=== PATIENT | male | born 1950 | race Two or more races ===

== ENCOUNTER 2017-08-21 15:24 | Inpatient (IN) | payer BC ==
[~2017-08-21] VITALS: Ht 172.7 cm; Wt 58.5 kg
--- NOTE | 2017-08-21 15:27 | NUR ---
PT TO ER BED 14 C/O R SIDED HEAD PAIN AND R ANKLE PAIN S/P SYNCOPE WHILE IN THE BATHROOM. PT IS AWAKE AAO, LATVIAN SPEAKING. PLACED ON MONITOR. VSS. AWAITING MD OCOHA.
--- NOTE | 2017-08-21 16:02 | NUR ---
DR POLANCO AT BEDSIDE FOR EVAL.
--- NOTE | 2017-08-21 16:21 | NUR ---
Note [email or web address] in EDM - 08/21/17 at 1810 by SERGEI PT TO ER BED 14 C/O R SIDED HEAD PAIN AND R ANKLE PAIN S/P SYNCOPE WHILE IN THE BATHROOM. PT IS AWAKE AAO, KOREAN SPEAKING. PLACED ON MONITOR. VSS. AWAITING MD OCHOA.
[2017-08-21 16:24] LABS: BASOPHILS # (AUTO) 0.1 /CMM (0.0-0.2); BASOPHILS % (AUTO) 0.5 % (0.0-2.0); EOSINOPHILS % (AUTO) 1.7 % (0.0-6.0); HEMATOCRIT 40 % (39-51); HEMOGLOBIN 13.5 g/dL (13.5-17.5); LYMPHOCYTES # (AUTO) 0.9 /CMM (0.8-4.8); LYMPHOCYTES % (AUTO) 7.8 % (20.0-44.0); MEAN CORPUSCULAR HEMOGLOBIN 30 PG (26.0-33.0); MEAN CORPUSCULAR HGB CONC 34 g/dl (31.0-36.0); MEAN CORPUSCULAR VOLUME 89 fL (80-96); MONOCYTES # (AUTO) 0.9 /CMM (0.1-1.30); MONOCYTES % (AUTO) 7.8 % (2.0-12.0); NEUTROPHILS # (AUTO) 8.9 /CMM (1.8-8.9); NEUTROPHILS % (AUTO) 82.2 % (43.0-81.0); PLATELET COUNT (AUTO) 273 /CMM (150-450); RDW COEFFICIENT OF VARIATION 12.8 (11.5-15.0); RED BLOOD CELL COUNT(AUTO) 4.55 MIL/uL (4.5-6.0)
[2017-08-21 16:34] LABS: CALCIUM, SERUM 8.7 mg/dL (8.5-10.1); CREATININE 0.9 mg/dL (0.6-1.3); POTASSIUM 4.3 mmol/L (3.5-5.1)
[2017-08-21 16:38] LABS: INR 0.95 (0.85-1.15)
[2017-08-21 16:42] LABS: TROPONIN I 0.164 ng/mL (0.00-0.056)
--- NOTE | 2017-08-21 16:50 | NUR ---
PT TO RADIOLOGY FOR HEAD AND C SPINE CT SCAN VIA WHEELCHAIR.
[2017-08-21] MEDS ORDERED: VALS80TA2 PO (18:11)
[2017-08-21] MEDS ORDERED: TAMS0.4C34 PO (18:11)
[2017-08-21] MEDS ORDERED: ATEN25TA PO (18:11)
[2017-08-21] MEDS ORDERED: PRED5TAB PO (18:11)
[2017-08-21] MEDS ORDERED: ASPI-1169 PO (18:11)
[2017-08-21] MEDS ORDERED: AMLO5TAB2 PO (18:11)
[2017-08-21] MEDS ORDERED: METO-356 PO (18:11)
[2017-08-21] MEDS ORDERED: OMEP20TA5 PO (18:11)
[2017-08-21] MEDS ORDERED: IOHEXOL-350 100 ML VIAL IV ONE (18:27)
[2017-08-21] MEDS ORDERED: CT SWABBABLE VALVE TRANS SET 1 EA INFUS.SET MC ONE (18:27)
[2017-08-21] MEDS ORDERED: IV NS 0.9% 250 ML IV ONE (18:27)
[2017-08-21] MEDS ORDERED: ASPIRIN 81 MG TAB.CHEW PO ONE (18:30)
[2017-08-21] MEDS ORDERED: ASPIRIN 325 MG TABLET ONE (19:02)
[2017-08-21] MEDS ORDERED: IV NS 0.9% 1,000 ML IV PRN (19:54)
[2017-08-21] MEDS ORDERED: MORPHINE SULFATE INJ 2 MG/ML DISP.SYRIN IV PRN (20:00)
[2017-08-21] MEDS ORDERED: NITROGLYCERIN 0.4 MG/TAB BOTTLE SL PRN (20:00)
[2017-08-21] MEDS ORDERED: MAG HYDROX/AL HYDROX/SIMETH 30 ML UDC PO PRN (20:00)
[2017-08-21] MEDS ORDERED: ACETAMINOPHEN 325 MG TABLET PO PRN (20:00)
[2017-08-21] MEDS ORDERED: HYDROCODONE/APAP 5/325MG 1 EACH TABLET PO PRN (20:00)
[2017-08-21] MEDS ORDERED: MAGNESIUM HYDROXIDE 30 ML UDC PO PRN (20:00)
[2017-08-21] MEDS ORDERED: Z GUARD REMEDY 2 OZ OINT TP PRN (20:00)
[2017-08-21] MEDS ORDERED: ONDANSETRON HCL/PF 4 MG/2 ML VIAL IVP PRN (20:00)
--- NOTE | 2017-08-21 20:25 | NUR ---
REPORT TO SUKI DUNN. PT AWAITING TRANSFER TO FLOOR.
[2017-08-21] MEDS ORDERED: ENOXAPARIN SODIUM 80 MG/0.8 ML DISP.SYRIN SQ ONE (20:30)
[2017-08-21 20:45] VITALS: BP_SYST 113; BP_SYST 122; BP_SYST 143; BP_DIAS 80; BP_DIAS 85; BP_DIAS 90
--- NOTE | 2017-08-21 20:45 | NUR ---
TELE-1/ASBESTOS TEXTILE SUPERVISOR RECEIVED PT ACCOMPANIED BY ER STAFF AND SEVERAL FAMILY MEMBERS. PT AMBULATED TO BED 119-1 WITHOUT ASSISTANCE. VSS AFEBRILE. ADMISSION ASSESSMENT COMPLETE. PT ORIENTED TO ROOM AND CALL LIGHT. FAMILY UPDATED ON PLAN OF CARE. BED IN LOWEST LOCKED POSITION. CALL LIGHT WITHIN REACH. BED ALARM ON. WILL CONTINUE TO MONITOR.
--- NOTE | 2017-08-21 20:53 | NUR ---
TRANSFERED TO FLOOR. STABLE CONDITION.
[2017-08-21] MEDS ORDERED: ENOXAPARIN SODIUM 60 MG/0.6 ML DISP.SYRIN SQ ONE (21:30)
[2017-08-21] MEDS: TAMSULOSIN 0.4 MG CAP.SR.24H PO SCH (21:51)
[2017-08-22 00:05] VITALS: BP 120/76
[2017-08-22 04:01] VITALS: BP 113/80
[2017-08-22 06:17] LABS: BASOPHILS # (AUTO) 0.1 /CMM (0.0-0.2); BASOPHILS % (AUTO) 0.7 % (0.0-2.0); EOSINOPHILS % (AUTO) 3.4 % (0.0-6.0); HEMATOCRIT 40 % (39-51); HEMOGLOBIN 13.3 g/dL (13.5-17.5); LYMPHOCYTES # (AUTO) 1.4 /CMM (0.8-4.8); LYMPHOCYTES % (AUTO) 15.8 % (20.0-44.0); MEAN CORPUSCULAR HEMOGLOBIN 29 PG (26.0-33.0); MEAN CORPUSCULAR HGB CONC 33 g/dl (31.0-36.0); MEAN CORPUSCULAR VOLUME 88 fL (80-96); MONOCYTES # (AUTO) 0.7 /CMM (0.1-1.30); MONOCYTES % (AUTO) 7.9 % (2.0-12.0); NEUTROPHILS # (AUTO) 6.3 /CMM (1.8-8.9); NEUTROPHILS % (AUTO) 72.2 % (43.0-81.0); PLATELET COUNT (AUTO) 258 /CMM (150-450); RDW COEFFICIENT OF VARIATION 13.1 (11.5-15.0); RED BLOOD CELL COUNT(AUTO) 4.55 MIL/uL (4.5-6.0); WHITE BLOOD COUNT (AUTO) 8.8 K/uL (4.3-11.0)
--- NOTE | 2017-08-22 07:30 | NUR ---
RESTORATIVE AIDE INITIAL NOTES: RECEIVED PT IN BED, AWAKE. A&O X3. NEPALI SPEAKING, OTHER STAFF MEMBER USED FOR TRANSLATION. ON TELE MONITOR ST, HR 105. IV TO L HAND IN PLACE, CONNECTED TO FLUIDS ORDERED. PT TOLERATING WELL. DENIES ANY PAIN OR DISCOMFORT AT THIS TIME. BED IN LOW LOCKED POSITION, CALL LIGHT WITHIN REACH. PLAN OF CARE DISCUSSED WITH PT. WILL CONTINUE TO MONITOR.
[2017-08-22 07:49] LABS: THYROID STIMULATING HORMONE 0.904 uIU/mL (0.358-3.74)
[2017-08-22 08:00] VITALS: BP 140/98
[2017-08-22] MEDS: ASPIRIN 81 MG TAB.CHEW PO SCH (08:23)
[2017-08-22] MEDS: predniSONE 5 MG TABLET PO SCH (08:23)
[2017-08-22 08:27] LABS: CALCIUM, SERUM 8.3 mg/dL (8.5-10.1); CREATININE 0.8 mg/dL (0.6-1.3); PHOSPHORUS 3.4 mg/dL (2.5-4.9)
[2017-08-22] MEDS ORDERED: ASPIRIN EC 81 MG TABLET.DR PO SCH (09:00)
[2017-08-22 12:00] VITALS: BP 120/78
--- NOTE | 2017-08-22 14:00 | NUR ---
DR DEWITT AT BEDSIDE TO ASSESS PT.
[2017-08-22 16:00] VITALS: BP_SYST 124; BP_SYST 126; BP_DIAS 90; BP_DIAS 94; BP_DIAS 95
[2017-08-22] MEDS: METOPROLOL TARTRATE 50 MG TABLET PO SCH ×2 (17:53→23:40)
--- NOTE | 2017-08-22 18:45 | NUR ---
CREDIT COUNSELOR END NOTES: PT REMAINS IN BED RESTING AT THIS TIME, EASY TO AROUSE. FAMILY MEMBER AT BEDSIDE. IV TO L WRIST IN PLACE AND CONNECTED TO FLUIDS ORDERED. PT DENIES ANY PAIN OR DISCOMFORT AT THIS TIME. BED IN LOW LOCKED POSITION, CALL LIGHT WITHIN REACH. BED ALARM ON FOR SAFETY. WILL ENDORSE TO PM SHIFT FOR CONTINUITY OF CARE.
[2017-08-22 20:00] VITALS: BP 114/78
--- NOTE | 2017-08-22 20:00 | NUR ---
SOFIA RN NOTES RECEIVED PT IN BED, AWAKE. A&O X4. NIUEAN SPEAKING, SON AT BEDSIDE. ON TELE MONITOR ST 78. PT IS ON NC 2L WITH SPO2 OF 98%. IV TO L HAND IN PLACE, CONNECTED TO FLUIDS ORDERED. PT TOLERATING WELL. DENIES ANY PAIN OR DISCOMFORT AT THIS TIME. BED IN LOW LOCKED POSITION, CALL LIGHT WITHIN REACH. PLAN OF CARE DISCUSSED WITH PT. WILL CONTINUE TO MONITOR.
[2017-08-22] MEDS: IV NS 0.9% 1,000 ML IV PRN (21:47)
[2017-08-22] MEDS: TAMSULOSIN 0.4 MG CAP.SR.24H PO SCH (22:01)
[2017-08-22] MEDS: ENOXAPARIN SODIUM 40 MG/0.4 ML DISP.SYRIN SQ SCH (22:07)
[2017-08-23] VITALS (9 sets, daily range): BP systolic 114–160; BP diastolic 74–96
[2017-08-23] MEDS: ZOLPIDEM TARTRATE 5 MG TABLET PO PRN ×3 (01:44→23:09)
--- NOTE | 2017-08-23 01:56 | NUR ---
SOFIA RN NOTES PATIENT DROOPED THE FIRST TABLET OF 5MG ZOLPIDEM PO AND I GAVE HIM NEW ONE SAME DOSE OF THE SAME MEDICATION.
[2017-08-23] MEDS: METOPROLOL TARTRATE 50 MG TABLET PO SCH ×4 (05:39→23:09)
--- NOTE | 2017-08-23 06:45 | NUR ---
SOFIA RN NOTES PATIENT IN BED RESTING COMFORTABLY, A/OX4, NO SOB, NO COMPLAIN OF PAIN DURING MY SHIFT. PT IS ON 2L O2 VIA NC WITH SPO2 OF 98%. SR ON CYCLE COUNTER, SYSTOLIC B/P WAS ON 140'S, 150'S , MEDS ARE ADMINISTERED IN TIMELY MANNERS. RIGHT FOREARM 20G IV LINE IS PATIENT, INTACT WITH 0.9% [id number].PT WAS NPO SINCE MIDNIGHT FOR CT ANGIO HEART 09:00, 08/23/17. ALL NEEDS ARE CARED OUT WITH TIMELY MANNERS. PT CARE WILL BE ENDORSE TO AM NURSE FOR RETIREMENT VILLAGE MANAGER.
[2017-08-23 07:12] LABS: BASOPHILS # (AUTO) 0.1 /CMM (0.0-0.2); BASOPHILS % (AUTO) 0.5 % (0.0-2.0); EOSINOPHILS % (AUTO) 3.2 % (0.0-6.0); HEMATOCRIT 42 % (39-51); HEMOGLOBIN 13.6 g/dL (13.5-17.5); LYMPHOCYTES # (AUTO) 2.1 /CMM (0.8-4.8); LYMPHOCYTES % (AUTO) 17.8 % (20.0-44.0); MEAN CORPUSCULAR HEMOGLOBIN 30 PG (26.0-33.0); MEAN CORPUSCULAR HGB CONC 33 g/dl (31.0-36.0); MEAN CORPUSCULAR VOLUME 92 fL (80-96); MONOCYTES # (AUTO) 0.9 /CMM (0.1-1.30); MONOCYTES % (AUTO) 7.3 % (2.0-12.0); NEUTROPHILS # (AUTO) 8.4 /CMM (1.8-8.9); NEUTROPHILS % (AUTO) 71.2 % (43.0-81.0); PLATELET COUNT (AUTO) 297 /CMM (150-450); RDW COEFFICIENT OF VARIATION 13.6 (11.5-15.0); RED BLOOD CELL COUNT(AUTO) 4.56 MIL/uL (4.5-6.0); WHITE BLOOD COUNT (AUTO) 11.8 K/uL (4.3-11.0)
[2017-08-23 07:23] LABS: CALCIUM, SERUM 8.3 mg/dL (8.5-10.1); CREATININE 0.8 mg/dL (0.6-1.3)
[2017-08-23] MEDS: IV NS 0.9% 1,000 ML IV PRN (07:34)
[2017-08-23] MEDS: ASPIRIN 81 MG TAB.CHEW PO SCH (08:55)
[2017-08-23] MEDS: predniSONE 5 MG TABLET PO SCH (08:55)
--- NOTE | 2017-08-23 11:11 | NUR ---
SUPERVISOR INSPECTION AND TESTING NOTES PT REFUSED CT ANGIO HEART WITH 3D IMAGE, DR LEE AT BEDSIDE, EXPLAINED PROCEDURE AND REASON FOR THE NEED OF IT BUT PT STILL REFUSED, EXPLAINED RISKS FOR NOT HAVING IT, CALLED DAUGHTER ADEOLA AND ADVISED HER PT HAS REFUSED CT ANGIO. WILL LET MD DEWITT KNOW ABOUT THIS AND PT INSISTS WANTS TO GO HOME.
--- NOTE | 2017-08-23 11:21 | NUR ---
HYDROLOGY TEACHER NOTES PT IS BACK ON CARDIAC DIET, NO NEED FOR NPO AT THIS TIME SINCE PT REFUSES CT ANGIO
--- NOTE | 2017-08-23 17:51 | NUR ---
END WORKER NOTES PT SIGNED CONSENT FOR CT ANGIO HEART WITH 3D IMAGE DR DEWITT AT BEDSIDE AND SPOKE WITH PT REGARDING RISKS OF NOT HAVING DONE, PTS FAMILY AT BEDSIDE AND PT DECIDED TO AGREE, PT NEEDS 18G IV RT AC PER XRAY REQUEST, PT KEPT NPO AFTER MIDNIGHT PER MD ORDERS, CALL [phone] TOM[address]ROW FOR CT SCAN
--- NOTE | 2017-08-23 18:33 | NUR ---
CLINICAL DIETICIAN ENDING NOTES PT RESTING IN BED, ASLEEP AT THIS TIME, PT NEEDS NEW IV SITE RT AC [address] ANGIO HEART TOMORROW, CONSENT SIGNED AND PLACED IN CHART, ALL NEEDS MET, NO ACUTE CHANGES NOTED, NO SOB, WILL MONITOR, DR LEE AWARE OF PT NOW OK WITH CT ANGIO HEART.
--- NOTE | 2017-08-23 19:30 | NUR ---
RN OPENING NOTES: RECEIVED PATIENT ON BED AWAKE ALERT AND ORIENTED, UPPER SORBIAN SPEAKING. PATIENT ON O2 VIA NC AT 2LPM, PATIENT NOTICED TO BE REMOVING O2 CANNULA ONCE IN A WHILE. RE EDUCATED RE O2 THERAPY. SR ON THE MONITOR. NO COMPLAINTS OF PAIN. IV ON RFA G20, PATENT AND INTACT, IVF INFUSING ORDERED. NO COMPLAINTS OF PAIN AT THIS TIME. FALL PRECAUTIONS AND SAFETY MEASURES ENSURED AT ALL TIMES. CALL LIGHT IN REACH. CONTINUOUSLY MONITORED.
[2017-08-23] MEDS: ENOXAPARIN SODIUM 40 MG/0.4 ML DISP.SYRIN SQ SCH (21:34)
[2017-08-23] MEDS: TAMSULOSIN 0.4 MG CAP.SR.24H PO SCH (21:35)
[2017-08-24] VITALS (14 sets, daily range): BP systolic 105–150; BP diastolic 66–99
[2017-08-24] MEDS: IV NS 0.9% 1,000 ML IV PRN (01:17)
[2017-08-24] MEDS: METOPROLOL TARTRATE 50 MG TABLET PO SCH ×2 (05:48→08:42)
--- NOTE | 2017-08-24 06:49 | NUR ---
RN CLOSING NOTES: PATIENT REMAINED NOT IN APPARENT DISTRESS AT THIS TIME. REMAINS ON BED. OCCASIONALLY ABLE TO AMBULATE TO BATHROOM FEW TIMES THE SHIFT. NPO SINCE MIDNIGHT. SAFETY MEASURES ENSURED AT ALL TIMES. CONTINUOUSLY MONITORED. AM LABS DRAWN, PENDING RESULT. TO ENDORSE TO PM SHIFT RN.
[2017-08-24 06:58] LABS: BASOPHILS % (AUTO) 0.5 % (0.0-2.0); EOSINOPHILS % (AUTO) 6.6 % (0.0-6.0); HEMATOCRIT 38 % (39-51); HEMOGLOBIN 12.3 g/dL (13.5-17.5); LYMPHOCYTES # (AUTO) 1.7 /CMM (0.8-4.8); LYMPHOCYTES % (AUTO) 19.4 % (20.0-44.0); MEAN CORPUSCULAR HEMOGLOBIN 30 PG (26.0-33.0); MEAN CORPUSCULAR HGB CONC 33 g/dl (31.0-36.0); MEAN CORPUSCULAR VOLUME 92 fL (80-96); MONOCYTES # (AUTO) 0.8 /CMM (0.1-1.30); MONOCYTES % (AUTO) 9.5 % (2.0-12.0); NEUTROPHILS # (AUTO) 5.7 /CMM (1.8-8.9); PLATELET COUNT (AUTO) 261 /CMM (150-450); RDW COEFFICIENT OF VARIATION 13.4 (11.5-15.0); RED BLOOD CELL COUNT(AUTO) 4.09 MIL/uL (4.5-6.0)
[2017-08-24 07:23] LABS: CALCIUM, SERUM 8.1 mg/dL (8.5-10.1); CREATININE 0.7 mg/dL (0.6-1.3); POTASSIUM 3.7 mmol/L (3.5-5.1)
--- NOTE | 2017-08-24 08:00 | NUR ---
WAITER/WAITRESS BUFFET AM NOTES: RECEIVED PATIENT ON BED COMFORTABLY SLEEPING BUT AROUSABLE. ALERT AND ORIENTED, PORTUGUESE SPEAKING. PATIENT ON O2 VIA NC AT 2LPM, PATIENT NOTICED TO BE REMOVING O2 CANNULA ONCE IN A WHILE. RE EDUCATED RE O2 THERAPY. SR ON THE MONITOR. NO COMPLAINTS OF PAIN. IV ON RFA G20, PATENT AND INTACT, IVF INFUSING ORDERED TO RFA AND ANOTHER HEPLOCK ON LFA G 18 FOR ANGIO USE. NO COMPLAINTS OF PAIN OR DISTRESS.FALL PRECAUTIONS AND SAFETY MEASURES ENSURED AT ALL TIMES. CALL LIGHT WITHIN REACH.
--- NOTE | 2017-08-24 09:20 | NUR ---
PT WENT FOR CT ANGIO OF HEART 3D IMAGE PROCEDURE WITH STABLE V/S.
[2017-08-24] MEDS ORDERED: VERAPAMIL HCL IV 5 MG/2 ML VIAL ONE (09:37)
--- NOTE | 2017-08-24 09:40 | NUR ---
ICU/RN: Pt brought to radiology in stable condition. Administered Verapamil 1mg IVP per MD order; HR >60. L FA #18 patent flushed. Pt verbalized understanding of procedure. 1003 - NTG 0.4 mg tab SL x1 tab administered. Educated on med, nodded head in agreement. 1010 - Test completed, pt in NSR, denies pain or distress. SBP >90mmHg.
[2017-08-24] MEDS ORDERED: IOHEXOL-350 100 ML VIAL IV ONE (09:42)
[2017-08-24] MEDS ORDERED: CT SWABBABLE VALVE TRANS SET 1 EA INFUS.SET MC ONE (09:43)
--- NOTE | 2017-08-24 10:35 | NUR ---
ICU/RN: Pt transferred back to floor in stable condition, fall precautions in place. Educated. Bedside report given to Lynnette for MICHAELA.
[2017-08-24] MEDS: predniSONE 5 MG TABLET PO SCH (10:39)
[2017-08-24] MEDS: ASPIRIN 81 MG TAB.CHEW PO SCH (10:39)
--- NOTE | 2017-08-24 10:40 | NUR ---
PT CAME BACK FROM CT ANGIO PROCEDURE WITH STABLE V/S.PT DENIES ANY PAIN OR DISTRESS. BP 108/70 HR 58-61 O2 SAT 94% ON ROOM AIR.PT RESTING IN BED COMFORTABLY.RESUMED HIS DIET.CALL LIGHT PLACED WITHIN REACH.
--- NOTE | 2017-08-24 14:40 | NUR ---
DISCHARGED PT HOME WITH STABLE V/S ACCOMPANIED BY HIS FAMILY MEMBERS VIA PRIVATE CAR.INSTRUCTED TO F/U WITH DR LARKIN FOR CARDIO F/U.REMOVED ALL IV H/L TO BOTH RFA AND LFA WITH NO BLEEDING NOTED.
== END 2017-08-24 14:41 | disposition home or self-care (01) | DRG 190 ==
LOC: ER 15:26 → TELE1 20:50 → MEDSG1 08-24 05:14
PROVIDERS: ADMIT Family Medicine; ATTEND Family Medicine
DX: I21.A1 Myocardial infarction type 2 (principal); J44.9 Chronic obstructive pulmonary disease, unspecified; I11.0 Hypertensive heart disease with heart failure; I50.32 Chronic diastolic (congestive) heart failure; R55 Syncope and collapse; M81.0 Age-related osteoporosis without current pathological fracture; G89.29 Other chronic pain; R91.8 Other nonspecific abnormal finding of lung field; J45.909 Unspecified asthma, uncomplicated; F17.210 Nicotine dependence, cigarettes, uncomplicated; Z91.14 Patient's other noncompliance with medication regimen; I34.0 Nonrheumatic mitral (valve) insufficiency; I35.1 Nonrheumatic aortic (valve) insufficiency
CPT/HCPCS: 36415; 70450-TC; 71045-TC; 72125-TC; 73610-TC; 75574; 80048-TC; 80061-TC; 83735-TC; 83880; 84100-TC; 84443-TC; 84484-TC; 85025-TC; 85730-TC; 87081-TC; 93307-TC; 93880-TC; A4606; J1650; J3490; J7030; J7050; J7512; Q9967; Z7610

== ENCOUNTER 2019-11-16 14:06 | Inpatient (IN) | payer BC, MEDICAID ==
[~2019-11-16] VITALS: Ht 175.3 cm; Wt 64.0 kg
[~2019-11-16 14:06] MED LIST: AMLO5TAB9 PO; ASPI-1169 PO; ATEN25TA PO; METO25TA4 PO; OMEP20TA5 PO; PRED5TAB PO; TAMS0.4C34 PO; VALS80TA2 PO
[2019-11-16] MEDS ORDERED: IV NS 0.9% 500 ML BAG IV ONE (14:30)
--- NOTE | 2019-11-16 14:30 | NUR ---
Patient awake transfer to room 09 hooked in the monitor ,EKG ,blood draw obtained send to lab .
[2019-11-16 14:38] LABS: BASOPHILS % (AUTO) 0.1 % (0.0-2.0); EOSINOPHILS % (AUTO) 0.2 % (0.0-6.0); HEMATOCRIT 44 % (39-51); HEMOGLOBIN 14.3 g/dL (13.5-17.5); LYMPHOCYTES # (AUTO) 0.9 /CMM (0.8-4.8); MEAN CORPUSCULAR HGB CONC 32 g/dl (31.0-36.0); MEAN CORPUSCULAR VOLUME 93 fL (80-96); MONOCYTES # (AUTO) 1.8 /CMM (0.1-1.30); MONOCYTES % (AUTO) 7.6 % (2.0-12.0); NEUTROPHILS # (AUTO) 20.4 /CMM (1.8-8.9); NEUTROPHILS % (AUTO) 88.1 % (43.0-81.0); PLATELET COUNT (AUTO) 223 /CMM (150-450); RED BLOOD CELL COUNT(AUTO) 4.78 MIL/uL (4.5-6.0); WHITE BLOOD COUNT (AUTO) 23.2 K/uL (4.3-11.0)
[2019-11-16 14:54] LABS: CREATININE 1.2 mg/dL (0.6-1.3); POTASSIUM 3.4 mmol/L (3.5-5.1)
[2019-11-16 15:00] LABS: ALBUMIN 3.1 g/dL (3.4-5.0); BILIRUBIN,DIRECT 0.3 mg/dL (0.0-0.2); TOTAL PROTEIN, SERUM 6.3 g/dL (6.4-8.2)
--- NOTE | 2019-11-16 15:12 | NUR ---
Son ( [facility] ) [phone] .
--- NOTE | 2019-11-16 16:13 | NUR ---
Machine Zipper Trimmer @ bedside for BC and lactate draw .
--- NOTE | 2019-11-16 16:13 | NUR ---
Lab notified regarding urine send .
[2019-11-16] MEDS ORDERED: IV NS 0.9% 1,000 ML BAG IV ONE (16:30)
[2019-11-16 17:15] LABS: APPEARANCE,URINE CLEAR (CLEAR); BILIRUBIN,URINE NEGATIVE (NEGATIVE); BLOOD, URINE SMALL Ery/uL (NEGATIVE); COLOR,URINE YELLOW (YELLOW); KETONES,URINE NEGATIVE (NEGATIVE); LEUKOCYTE ESTERASE ,URINE NEGATIVE (NEGATIVE); NITRITE, URINE NEGATIVE (NEGATIVE); PH,URINE 7.5 (5.0-8.0); PROTEIN,URINE NEGATIVE (NEGATIVE); UGLUCOSE NEGATIVE (NEGATIVE); UROBILINOGEN,URINE 0.2 EU/dL (0.2)
[2019-11-16] MEDS ORDERED: CEFTRIAXONE 1GM BAG (ER ONLY) 50 ML IV ONE (17:18)
--- NOTE | 2019-11-16 17:28 | NUR ---
Patient son reamain waiting area and he is up to date .
[2019-11-16] MEDS ORDERED: CEFTRIAXONE 1GM BAG (ER ONLY) 1 GM/50 ML PIGGYBACK IV ONE (17:30)
--- NOTE | 2019-11-16 18:10 | NUR ---
covid swab send to lab
--- NOTE | 2019-11-16 18:17 | NUR ---
Called His son made awre patient is for admission
--- NOTE | 2019-11-16 18:22 | NUR ---
SHANELL ([facility]) [phone]
--- NOTE | 2019-11-16 18:26 | NUR ---
COVID Test Result: Negative
--- NOTE | 2019-11-16 18:36 | NUR ---
Called Dontae aware plan of care .
--- NOTE | 2019-11-16 19:06 | NUR ---
Report given to Karol DUNN .
[2019-11-16] MEDS ORDERED: ACETAMINOPHEN 325 MG TABLET PO PRN (19:30)
[2019-11-16] MEDS ORDERED: ZOLPIDEM TARTRATE 5 MG TABLET PO PRN (19:30)
[2019-11-16] MEDS ORDERED: MORPHINE SULFATE INJ 10 MG/ML DISP.SYRIN IV PRN (19:30)
[2019-11-16] MEDS ORDERED: POTASSIUM CHLORIDE 20 MEQ TAB.PRT.SR PO ONE (19:30)
--- NOTE | 2019-11-16 19:35 | NUR ---
CALLED NURSING SUP FOR BED
--- NOTE | 2019-11-16 19:36 | NUR ---
CALLED DR. CARDOZA TO CLARIFY CTA CAROTID ORDER, MD CARDOZA STATES THAT WILL BE CHANGED TO ULTRASOUND CAROTID. RADIOLOGY NOTIFIED.
--- NOTE | 2019-11-16 19:37 | NUR ---
1 NEW WRITTEN ORDER BY DR. CARDOZA TO ENDORSE TO ASSIGNED NURSE WHEN PATIENT IS ADMITTED
--- NOTE | 2019-11-16 19:49 | NUR ---
BED ASSIGNMENT TELE 322-1
--- NOTE | 2019-11-16 20:04 | NUR ---
REPORT GIVEN TO ALEJANDRA DUNN FOR MICHAELA.
--- NOTE | 2019-11-16 20:13 | NUR ---
PATIENT SENT TO ASSIGNED ROOM.
[2019-11-16 20:15] VITALS: BP 107/69
--- NOTE | 2019-11-16 20:30 | NUR ---
HEAD OF ICTACID CORRECTION HAND NOTES PATIENT ADMITTED FROM ER FOR SYNCOPE AND ACUTE GASTROENTERITIS; ARRIVED VIA GURNEY IN STABLE CONDITION. A/OX4; KYRGYZ SPEAKING ONLY. STABLE ON RA; NO S/S OF ACUTE RESPIRATORY DISTRESS; BREATHING IS EVEN AND UNLABORED. CALLED SON SHANELL FOR TRANSLATION AND PATIENT MEDICAL HISTORY. PATIENT DENIES ANY PAIN AT THIS TIME. IV PRESENT ON LEFT AC, SIZE 18, INTACT & PATENT, HEP LOCKED. NO WOUNDS PRESENT; SKIN DRY AND INTACT. BELONGINGS REVIEWED WITH PATIENT AND LIST PLACED IN CHART. ADMITTING ORDERS IN PLACE BY DR. CARDOZA. SAFETY MEASURES IN PLACE AND PATIENT'S NEEDS MET. BED LOCKED, ALARM ON, SIDE RAILS X2, CALL LIGHT WITHIN REACH. WILL CONTINUE TO MONITOR.
[2019-11-16] MEDS: PANTOPRAZOLE 40 MG VIAL IV SCH (20:34)
[2019-11-16] MEDS ORDERED: Potassium Chloride 20 MEQ in IV D5/0.45 NACL 1,000 ML IV PRN (21:00)
[2019-11-16] MEDS ORDERED: Potassium Chloride 20 MEQ in IV D5/ 0.9% NACL 1,000 ML IV PRN (21:00)
--- NOTE | 2019-11-16 21:02 | NUR ---
INSPECTOR AND SORTER NOTES CALLED DR. CARDOZA AND NOTIFIED THAT D5 1/2 NS WITH KCL 20 MEQ NOT IN STOCK AT THIS TIME; RECEIVED NEW ORDERS TO START IVF WITH NS WITH KCL 20 MEQ AT 100 ML/HR. ORDERS RECEIVED AND CARRIED OUT.
[2019-11-16] MEDS ORDERED: PIPERACILLIN /TAZOBACTAM 3.375 G VIAL IV ONE (21:34)
[2019-11-16] MEDS ORDERED: IV PREMIX NS +20MEQ KCL 1 L IV ONE (21:36)
[2019-11-16] MEDS: PIPERACILLIN /TAZOBACTAM 3.375 G in IV D5W 50 ML IV SCH (21:39)
[2019-11-16] MEDS: TAMSULOSIN 0.4 MG CAP.SR.24H PO SCH (22:57)
[2019-11-16] MEDS: Potassium Chloride 20 MEQ in IV NS 0.9% 1,000 ML IV PRN (23:06)
[2019-11-17] VITALS (10 sets, daily range): BP systolic 96–132; BP diastolic 63–87
[2019-11-17] MEDS ORDERED: PIPERACILLIN /TAZOBACTAM 3.375 G in IV D5W 50 ML IV SCH ×2
[2019-11-17] MEDS ORDERED: PIPERACILLIN /TAZOBACTAM 3.375 G VIAL IV ONE (01:52)
[2019-11-17] MEDS: PIPERACILLIN /TAZOBACTAM 3.375 G in IV D5W 50 ML IV SCH ×2 (02:51→09:23)
--- NOTE | 2019-11-17 06:59 | NUR ---
SALES AND CATERING COORDINATOR CLOSING NOTES PATIENT SLEEPING, EASY TO AWAKEN. A/OX4. STABLE ON RA; NO S/S OF ACUTE RESPIRATORY DISTRESS; BREATHING IS EVEN AND UNLABORED. NO S/S OF PAIN NOTED. IV PRESENT ON LEFT AC, SIZE 18, INTACT & PATENT WITH NS KCL 20 MEQ RUNNING AT 100 ML/HR. TELE MONITOR READING NSR. SAFETY MEASURES IN PLACE AND PATIENT'S NEEDS MET. BED LOCKED, SIDE RAILS X2, CALL LIGHT WITHIN REACH. WILL ENDORSE TO DAY SHIFT RN PLAN OF CARE.
[2019-11-17 07:39] LABS: BASOPHILS % (AUTO) 0.2 % (0.0-2.0); HEMATOCRIT 42 % (39-51); HEMOGLOBIN 13.8 g/dL (13.5-17.5); LYMPHOCYTES # (AUTO) 0.7 /CMM (0.8-4.8); LYMPHOCYTES % (AUTO) 5.6 % (20.0-44.0); MEAN CORPUSCULAR HGB CONC 33 g/dl (31.0-36.0); MEAN CORPUSCULAR VOLUME 92 fL (80-96); MONOCYTES # (AUTO) 0.7 /CMM (0.1-1.30); MONOCYTES % (AUTO) 5.2 % (2.0-12.0); NEUTROPHILS # (AUTO) 11.3 /CMM (1.8-8.9); PLATELET COUNT (AUTO) 200 /CMM (150-450); RED BLOOD CELL COUNT(AUTO) 4.56 MIL/uL (4.5-6.0); WHITE BLOOD COUNT (AUTO) 12.8 K/uL (4.3-11.0)
[2019-11-17 07:56] LABS: CALCIUM, SERUM 7.7 mg/dL (8.5-10.1); CREATININE 0.9 mg/dL (0.6-1.3)
[2019-11-17 08:07] LABS: ALBUMIN 2.7 g/dL (3.4-5.0); BILIRUBIN,TOTAL 0.7 mg/dL (0.2-1.0); MAGNESIUM 1.9 mg/dL (1.8-2.4)
[2019-11-17 08:09] LABS: THYROID STIMULATING HORMONE 1.437 uIU/mL (0.358-3.74)
[2019-11-17] MEDS ORDERED: ASPIRIN 81 MG TAB.CHEW PO SCH (09:00)
[2019-11-17] MEDS ORDERED: AMLODIPINE BESYLATE 5 MG TABLET PO SCH (09:00)
--- NOTE | 2019-11-17 09:00 | NUR ---
RN NOTES RECEIVED PATIENT IN THE BED A/O X3, ON TELE SR-96, V/S TAKEN BP 96/69, P102, REFUSED PAIN, PATIENT AMBULATORY USING BATHROOM. INFUSING NS WITH KCL 20MEQ AT 100 ML/HR, PATIENT NPO. SAFETY PRECAUTION MAINTAINED ALL THE TIME.
[2019-11-17] MEDS: ASPIRIN 81 MG TAB.CHEW PO SCH (09:25)
[2019-11-17] MEDS: PANTOPRAZOLE 40 MG VIAL IV SCH (09:25)
[2019-11-17] MEDS: ATORVASTATIN 40 MG TABLET PO SCH (09:25)
[2019-11-17] MEDS: predniSONE 5 MG TABLET PO SCH (09:26)
[2019-11-17] MEDS ORDERED: ALBUTEROL SULFATE INH 18 GM HFA.AER.AD IH PRN (09:30)
[2019-11-17] MEDS ORDERED: ALBUTEROL FS 2.5 MG/3 ML VIAL.NEB NEB PRN (09:30)
--- NOTE | 2019-11-17 11:35 | NUR ---
RN NOTES PATIENT STRAP MAKER FOR SURGERY AT THIS TIME, STABLE, REFUSED PAIN, V/S WNL. Addendum: 11/17/19 at 1201 by MARIUM RDZ RN UP NOTES IN WRONG INTERVENTION.
[2019-11-17] MEDS ORDERED: METOPROLOL TARTRATE 50 MG TABLET PO SCH ×2 (12:00)
[2019-11-17] MEDS: PIPERACILLIN /TAZOBACTAM 3.375 G in IV D5W 100 ML IV SCH ×2 (15:10→22:13)
[2019-11-17] MEDS: Potassium Chloride 20 MEQ in IV NS 0.9% 1,000 ML IV PRN (17:38)
--- NOTE | 2019-11-17 18:28 | NUR ---
RN NOTES PATIENT TOLERATED DINNER WELL, REFUSED PAIN, INFUSING ZOSYN 25 ML/HR INTACT ON LEFT FA INTACT. CALL LIGHT WITHIN TO REACH. ENDORSED ONCOMING NURSE FOLLOW PLAN OF CARE.
--- NOTE | 2019-11-17 19:30 | NUR ---
MACHINE ATTENDANT: RECEIVED PATIENT Patient in bed, awake, A/O x3. Slovenian speaking. Marina,RN assist with translation at bedside. Patient in on room air, denies SOB. Sinus Tach HR 119 in the Tele monitor. Fall precaution maintained.
[2019-11-17] MEDS: METOPROLOL TARTRATE 50 MG TABLET PO SCH (21:13)
[2019-11-17] MEDS: TAMSULOSIN 0.4 MG CAP.SR.24H PO SCH (21:14)
[2019-11-18] VITALS: BP 117/63
[2019-11-18 04:00] VITALS: BP 119/60
[2019-11-18 04:57] VITALS: BP 119/60
[2019-11-18] MEDS: PIPERACILLIN /TAZOBACTAM 3.375 G in IV D5W 100 ML IV SCH (05:44)
--- NOTE | 2019-11-18 06:42 | NUR ---
WATER PURIFICATION CHEMIST: END OF SHIFT REPORT Patient in bed, ambulates independently. Sinus Tach HR 68 in the Tele monitor. IV infusing, on IV Abx. Afebrile. No acute events overnight, no c/o N/V, reports no diarrhea. Maintained safety. Will endorse to oncoming RN.
[2019-11-18 07:34] LABS: BASOPHILS # (AUTO) 0.1 /CMM (0.0-0.2); BASOPHILS % (AUTO) 0.6 % (0.0-2.0); EOSINOPHILS % (AUTO) 1.9 % (0.0-6.0); HEMATOCRIT 42 % (39-51); LYMPHOCYTES # (AUTO) 0.8 /CMM (0.8-4.8); LYMPHOCYTES % (AUTO) 8.2 % (20.0-44.0); MEAN CORPUSCULAR HGB CONC 33 g/dl (31.0-36.0); MEAN CORPUSCULAR VOLUME 92 fL (80-96); MONOCYTES # (AUTO) 0.8 /CMM (0.1-1.30); NEUTROPHILS # (AUTO) 7.8 /CMM (1.8-8.9); NEUTROPHILS % (AUTO) 81.3 % (43.0-81.0); PLATELET COUNT (AUTO) 218 /CMM (150-450); WHITE BLOOD COUNT (AUTO) 9.6 K/uL (4.3-11.0)
[2019-11-18 07:41] LABS: CALCIUM, SERUM 7.8 mg/dL (8.5-10.1); CREATININE 0.9 mg/dL (0.6-1.3); POTASSIUM 3.6 mmol/L (3.5-5.1)
--- NOTE | 2019-11-18 07:45 | NUR ---
METER CHANGES RECORDS CLERK OPENING SHIFT NOTES RECEIVED PATIENT RESTING COMFORTABLY IN BED, A/OX 3, TURKISH SPEAKER, ON RA, NO SOB NOTED, NO ACUTE RESPIRATORY DISTRESS NOTED. NO C/O PAIN, PATIENT IS AMBULATORY WITH BRP. SKIN INTACT, ON TELE MONITOR WITH NSR @89 BPM, IV TO RT ARM PATENT AND INTACT RUNNING NS WITH KCL 20 MEQ @ 100ML /HR. BED AT LOWEST POSITION WITH SIDE RAILS UPX 2 AND LOCKED, CALL LIGHT WITH IN REACH. ALL SAFETY MEASURES IN PLACE, WILL CONTINUE TO MONITOR PATIENT THROUGH OUT SHIFT
[2019-11-18] MEDS: PANTOPRAZOLE 40 MG VIAL IV SCH (08:15)
[2019-11-18] MEDS: ASPIRIN 81 MG TAB.CHEW PO SCH (08:16)
[2019-11-18] MEDS: ATORVASTATIN 40 MG TABLET PO SCH (08:16)
[2019-11-18] MEDS: predniSONE 5 MG TABLET PO SCH (08:16)
[2019-11-18 09:00] VITALS: BP 98/70
[2019-11-18] MEDS: METOPROLOL TARTRATE 50 MG TABLET PO SCH (09:00)
[2019-11-18] MEDS ORDERED: METO50TA7 PO (09:11)
[2019-11-18] MEDS ORDERED: ATOR40TA PO (09:22)
--- NOTE | 2019-11-18 10:04 | NUR ---
BORING MACHINE OPERATOR DOUBLE END NOTES D/C ORDER RECEIVED, PATIENT INFORMED OF D/C TO HOME, PATIENT CONTACTED DAUGHTER VIA TELEPHONE TO NOTIFY OF D/C. MEDICATION, D/C INSTRUCTIONS AND EDUCATION PROVIDED TO PATIENT. INSTRUCTED PATIENT TO F/U WITH PCP, BELONGINGS LIST CHECKED AND SIGNED BY PATIENT. SKIN INTACT, AWAITING FAMILY FOR PIPELINE DISPATCH OPERATOR.
--- NOTE | 2019-11-18 10:45 | NUR ---
TELE / MS RN D/C NOTES PT LEFT IN STABLE CONDITION A/OX3-4 VIA WHEEL CHAIR TAKEN TO LOBBY BY BART ZULETA ALL DISCHARGE EDUCTION, RX GIVEN TO PATIENT. BELONGINGS CHECKED, IV TO RT ARM D/C. PATIENT PICKED UP BY AND LEFT VIA PRIVATE CAR.
[2019-11-19] MEDS ORDERED: PANTOPRAZOLE 40 MG/PACK PACK PO SCH (09:00)
== END 2019-11-18 11:00 | disposition home or self-care (01) | DRG 249 ==
LOC: ER 14:11 → TELE 19:51 → MED 11-18 08:55
PROVIDERS: ADMIT Internal Medicine; ATTEND Internal Medicine
DX: K52.9 Noninfective gastroenteritis and colitis, unspecified (principal); E87.6 Hypokalemia; I95.9 Hypotension, unspecified; I10 Essential (primary) hypertension; J44.9 Chronic obstructive pulmonary disease, unspecified; Z79.82 Long term (current) use of aspirin; Z79.899 Other long term (current) drug therapy; I21.A1 Myocardial infarction type 2; E87.2 Acidosis; D72.829 Elevated white blood cell count, unspecified; I25.10 Atherosclerotic heart disease of native coronary artery without angina pectoris; I65.23 Occlusion and stenosis of bilateral carotid arteries; I70.0 Atherosclerosis of aorta; F17.200 Nicotine dependence, unspecified, uncomplicated
CPT/HCPCS: 36415; 71045-TC; 80048-TC; 80053-TC; 80061-TC; 80076-TC; 81000-TC; 83605-TC; 83735-TC; 84443-TC; 84484-TC; 85025-TC; 87040-TC; 87081-TC; 87086-TC; 93307-TC; 93880-TC; C9113; C9803; G0378; J0696; J2543; J3480; J3490; J7030; J7040; J7042; J7060; J7512